=== PATIENT | female | born 1985 | race Caucasian/White ===

== ENCOUNTER 2017-05-11 09:35 | Emergency (ER) | payer SELFPAY ==
[2017-05-11 09:42] VITALS: BP 142/75
[2017-05-11] MEDS ORDERED: KETOROLAC TROMETHAMINE INJ/PF 30 MG/1 ML SDV IV ONE (10:30)
[2017-05-11] MEDS ORDERED: CLINDAMYCIN 600 MG/D5W RTU 600 MG/50 ML RTUPB IV ONE (10:30)
--- NOTE | 2017-05-11 10:32 | ER Document Report ---
HPI - HPI Patient complains to provider of: eyebrow abscess Onset: Yesterday Onset/Duration: Gradual Quality of pain: Achy Pain Level: 3 Context: Patient presents complaining of abscess to right eyebrow that started yesterday. Patient states that the area started as a pimple that she tried to squeeze. Patient denies any fever. Patient does report a history of MRSA. Patient also reports a history of IV drug use although states that she stopped using and has been clean for the past 9 days. Associated Symptoms: Other - Abscess to right eyebrow. denies: Fever Exacerbated by: Denies Relieved by: Denies Similar symptoms previously: Yes Recently seen / treated by doctor: No - ROS ROS below otherwise negative: Yes Systems Reviewed and Negative: Yes All other systems reviewed and negative - CONSTITUTIONAL Constitutional: DENIES: Fever - EENT EENT: DENIES: Sore Throat - NEURO Neurology: DENIES: Headache - RESPIRATORY Respiratory: DENIES: Coughing - GASTROINTESTINAL Gastrointestinal: DENIES: Nausea, Patient vomiting - MUSCULOSKELETAL Musculoskeletal: DENIES: Extremity pain, Back Pain, Neck Pain - DERM Skin Color: Erythema Notes: abscess Past Medical History - General Information source: Patient - Social History Smoking Status: Current Every Day Smoker Chew tobacco use (# tins/day): No Smoking Education Provided: Yes Frequency of alcohol use: None Drug Abuse: Heroin Occupation: none Lives with: Family Family History: Reviewed & Not Pertinent Patient has suicidal ideation: No Patient has homicidal ideation: No Renal/ Medical History: Denies: Hx Peritoneal Dialysis Skin Medical History: Reports Hx MRSA Infectious Medical History: Reports: Hx Hepatitis - hep c Past Surgical History: Reports: Hx Gynecologic Surgery - D&C, colposcopy, Other - neck abscess Vertical Provider Document - CONSTITUTIONAL Agree With Documented VS: No - Heart rate 100 Exam Limitations: No Limitations - HEENT HEENT: Atraumatic, Normocephalic Notes: No proptosis, no pain with eye movements, no chemosis - NECK Neck: Other - Scar to right lower side of neck. negative: Lymphadenopathy-Left , Lymphadenopathy-Right - RESPIRATORY Respiratory: Breath Sounds Normal, No Respiratory Distress O2 Sat by Pulse Oximetry: 98 - CARDIOVASCULAR Cardiovascular: Regular Rate, Regular Rhythm, No Murmur. negative: Tachycardia - MUSCULOSKELETAL/EXTREMETIES Musculoskeletal/Extremeties: MAEW - NEURO Level of Consciousness: Awake, Alert, Appropriate Motor/Sensory: No Motor Deficit - DERM Integumentary: Warm, Dry, Abscess - Developing abscess to right brow area with surrounding erythema extending to right upper eyelid area. No proptosis Notes: Multiple track marroquin to bilateral upper extremities and neck area Course - Re-evaluation Re-evalutation: 05/11/17 10:32 Controlled substance database reviewed 05/11/17 12:58 Patient refuses to stay for any additional blood draw. Patient with abscess to right eyebrow with surrounding cellulitis. Patient with right upper eyelid swelling concerning for developing cellulitis. Good return precautions given to patient. Patient encouraged to return in 2 days for a recheck and advised to return immediately for any new or worsening symptoms. Patient without fever , proptosis or pain to the eye with movement of her eye. No concern for orbital cellulitis at this time. Patient advised that if she were to have a worsening infection involving her eye it could cause permanent vision loss and patient was encouraged to be compliant with taking her antibiotics. Patient states she understands this that she has had skin abscesses in the past and has taken clindamycin for infections before. 05/11/17 13:11 Nurse states that patient left before she could receive discharge packet from patient access. Provider called the phone number that was on file and left a message for patient to return phone call 05/11/17 18:21 - Vital Signs Vital signs: Temp Pulse Resp BP Pulse Ox 98.7 F 117 H 20 142/75 H 98 05/11/17 09:36 05/11/17 09:36 05/11/17 09:36 05/11/17 09:36 05/11/17 09:36 - Laboratory Result Diagrams: 05/11/17 11:00 Procedures - Incision and Drainage Right Face Type: Simple Anesthetic type: 1% Lidocaine Blade size: 11 I&D procedure: Betadine prep applied Incision Method: Incision made by scalpel Amount/type of drainage: sm amount of purulent drainage Adult Head Front/Back picture: 1 - abscess Discharge - Discharge Clinical Impression: Facial abscess, Encounter for incision and drainage procedure, Facial cellulitis Condition: Stable Disposition: HOME, SELF-CARE Instructions: Abscess ([facility]), Cellulitis ([facility]), Clindamycin ([facility]), Post Incision and Drainage, Warm Packs ([facility]) Additional Instructions: Return immediately for any new or worsening symptoms Followup with your primary care provider, call tomorrow to make a followup appointment Return in 2 days for wound recheck, sooner for any problems Get your antibiotics filled today and take as directed. Prescriptions: Clindamycin HCl [Cleocin Hcl] 300 mg PO QID #28 capsule Forms: Smoking Cessation Education Referrals: [facility] [Provider Group] - Follow up as needed
== END 2017-05-11 13:01 | disposition home or self-care (01) ==
LOC: ER 09:35
DX: L02.01 Cutaneous abscess of face (principal); L03.211 Cellulitis of face; Z86.14 Personal history of Methicillin resistant Staphylococcus aureus infection; F11.10 Opioid abuse, uncomplicated; F17.200 Nicotine dependence, unspecified, uncomplicated
CPT/HCPCS: 99283; 96375; 96365; 87040; 10060; J1885

== ENCOUNTER 2017-05-12 01:33 | Emergency (ER) | payer SELFPAY ==
--- NOTE | 2017-05-12 06:34 | ER Document Report ---
ED General - General Chief Complaint: Eye Pain Stated Complaint: RIGHT EYE PAIN WITH ABSCESS Time Seen by Provider: 05/12/17 06:33 Notes: Patient is a 31-year-old female, history of IVDA, presents with worsening redness around her right eye. She was seen in the ER yesterday for a eyebrow abscess and was supposed to be started on clindamycin, but she left before her discharge paperwork her antibiotics can be given to her. She is now noticing mild eye pain, but denies blurry vision, fevers, pain when moving her eye, nausea or vomiting. TRAVEL OUTSIDE OF THE [place] IN LAST 30 DAYS: No - Related Data Allergies/Adverse Reactions: No Known Allergies Allergy (Verified 05/12/17 07:01) Past Medical History - General Information source: Patient - Social History Smoking Status: Unknown if Ever Smoked Family History: Reviewed & Not Pertinent Renal/ Medical History: Denies: Hx Peritoneal Dialysis GI Medical History: Reports: Hx Hepatitis - hep c Skin Medical History: Reports Hx MRSA Infectious Medical History: Reports: Hx Hepatitis - hep c Past Surgical History: Reports: Hx Gynecologic Surgery - D&C, colposcopy, Other - neck abscess Review of Systems - Review of Systems Notes: REVIEW OF SYSTEMS: CONSTITUTIONAL: -fevers, -chills EENT: +right eye pain, -difficulty swallowing, -nasal congestion CARDIOVASCULAR: -chest pain, -syncope. RESPIRATORY: -cough, -SOB GASTROINTESTINAL: -abdominal pain, -nausea, -vomiting, -diarrhea GENITOURINARY: -dysuria, -hematuria MUSCULOSKELETAL: -back pain, -neck pain SKIN: -rash or skin lesions. HEMATOLOGIC: -easy bruising or bleeding. LYMPHATIC: -swollen, enlarged glands. NEUROLOGICAL: -altered mental status or loss of consciousness, -headache, - neurologic symptoms PSYCHIATRIC: -anxiety, -depression. ALL OTHER SYSTEMS REVIEWED AND NEGATIVE. Physical Exam - Vital signs Vitals: Temp Pulse Resp BP Pulse Ox 98.9 F 104 H 20 133/72 H 98 05/12/17 02:10 05/12/17 02:10 05/12/17 02:10 05/12/17 02:10 05/12/17 02:10 - Notes Notes: PHYSICAL EXAMINATION: GENERAL: Well-appearing, well-nourished and in no acute distress. HEAD: Atraumatic, normocephalic. EYES: Pupils equal round and reactive to light, extraocular movements intact, sclera anicteric, conjunctiva are normal. ENT: nares patent, oropharynx clear without exudates. Moist mucous membranes. NECK: Normal range of motion, supple without lymphadenopathy LUNGS: Breath sounds clear to auscultation bilaterally and equal. No wheezes rales or rhonchi. HEART: Mild tachycardia, regular rhythm. ABDOMEN: Soft, nontender, normoactive bowel sounds. No guarding, no rebound. No masses appreciated. EXTREMITIES: Normal range of motion, no pitting or edema. No cyanosis. NEUROLOGICAL: Cranial nerves grossly intact. Normal speech, normal gait. Normal sensory and motor exams. PSYCH: Normal mood, normal affect. SKIN: Erythema around right upper eye and eyebrow, no discrete fluctuance noted Course - Re-evaluation Re-evalutation: Patient with evidence of a mild right periorbital cellulitis. No evidence of orbital cellulitis and no ocular invo lvement at this time. No discrete abscess to I&D either. Provided her with her prescription of clindamycin that she was supposed to receive yesterday, but left before she received them. Also gave her a dose today. Given strict return precautions and she understands. - Vital Signs Vital signs: Temp Pulse Resp BP Pulse Ox 98.8 F 76 20 108/58 L 100 05/12/17 06:46 05/12/17 06:46 05/12/17 06:46 05/12/17 06:46 05/12/17 06:46 Discharge - Discharge Clinical Impression: Periorbital cellulitis of right eye Condition: Stable Disposition: HOME, SELF-CARE Additional Instructions: MRSA CELLULITIS: You have an infection of your skin and underlying soft tissues called cellulitis. This is due to bacteria, which can enter through any break in the skin, or even through an irritated hair follicle. Untreated, cellulitis will usually worsen and may form an abscess which requires draining. Although many bacterial organisms can cause cellulitis and abscess formations, the most likely bacteria is Methicillin-Resistant Staph Aureus, or MRSA for short. Antibiotics are required. Usually, warm packs or warm soaks, and elevation of the infected area are recommended. You should start getting better within 24 to 36 hours. Most infections respond quickly to the right medication. Follow-up care is important, however, to check for abscess (boil) formation, unsuspected foreign body, or resistant infection. If you develop fever, chills, or if the area of infection is becoming rapidly more swollen or painful, call the doctor at once. ANTIBIOTIC THERAPY: You have been given an antibiotic prescription. It's important that you take all the medication, unless instructed otherwise by your physician. Failure to complete the entire course can result in relapse of your condition. Common side effects of antibiotics include nausea, intestinal cramping, or diarrhea. Women may develop vaginal yeast infections, and babies can get yeast (thrush) in the mouth following the use of antibiotics. Contact your physician if you develop significant side effects from this medication. Allergy to this antibiotic can result in hives, wheezing, faintness, or itching. If symptoms of allergy occur, stop the medication and call the doctor. CLINDAMYCIN: You have been given a prescription for the antibiotic clindamycin. It is often prescribed for infections in the mouth, such as dental infections or abscesses, and for skin infections due to MRSA. It's important that you take all the medication, unless instructed otherwise by your physician. Failure to complete the entire course can result in relapse of your condition. Common side effects of antibiotics include nausea, intestinal cramping, or diarrhea. Women may develop vaginal yeast infections, and babies can get yeast (thrush) in the mouth following the use of antibiotics. Contact your physician if you develop significant side effects from this medication. Allergy to this antibiotic can result in hives, wheezing, faintness, or itching. If symptoms of allergy occur, stop the medication and call the doctor. FOLLOW-UP CARE: If you have been referred to a physician for follow-up care, call the physician s office for an appointment as you were instructed or within the next two days. If you experience worsening or a significant change in your symptoms, notify the physician immediately or return to the Emergency Department at any time for re-evaluation. Prescriptions: Naproxen [Naprosyn 250 mg Tablet] 500 mg PO Q12H PRN #14 tablet PRN Reason: Forms: Elevated Blood Pressure
[2017-05-12] MEDS ORDERED: CLINDAMYCIN HCL 150 MG CAPSULE PO ONE (06:35)
[2017-05-12] MEDS ORDERED: IBUPROFEN 600 MG TABLET PO ONE (06:46)
[2017-05-12] MEDS ORDERED: ACETAMINOPHEN 325 MG TABLET PO ONE (06:46)
[2017-05-12 06:48] VITALS: BP 108/58
== END 2017-05-12 07:00 | disposition home or self-care (01) ==
LOC: ER 01:33
DX: L03.213 Periorbital cellulitis (principal); H57.11 Ocular pain, right eye; Z86.14 Personal history of Methicillin resistant Staphylococcus aureus infection; Z86.19 Personal history of other infectious and parasitic diseases
CPT/HCPCS: 99283